=== PATIENT | male | born 2000 | race Hispanic/Latino ===

== ENCOUNTER → 2023-05-21 | Emergency (ER) | payer SELFPAY ==
[~2023-05-21] MED LIST: DIAZEPAM 5 MG TABLET ONE; LORazepam 2 MG/ML VIAL ONE; WATER FOR INJ,STERILE 10 ML ONE; ZIPRASIDONE MESYLA 20 MG/VIAL IM ONE
[2023-05-21 10:54] LABS: Absolute Lymphocytes (CBC) 1.6 K/uL (0.7-4.9); Hematocrit 49.2 % (39.6-49.0); Lymphocytes % 18.4 % (15.3-44.8); MCV 91.7 fL (80-100); Platelets 254 thou/uL (152-406); RBC Red Blood Cell Count 5.37 M/uL (4.33-5.43)
[2023-05-21 10:59] LABS: Protime INR 1.03
[2023-05-21 11:14] LABS: ALT/SGPT 21 U/L (16-61); AST/SGOT 15 U/L (15-37); Albumin 4.4 g/dL (3.4-5.0); Alkaline Phosphatase 75 U/L (45-117); BUN Blood Urea Nitrogen 7 mg/dL (7-18); Bicarbonate 25 mEq/L (21-32); Bilirubin Direct 0.2 mg/dL (0-0.2); Bilirubin Indirect, Calculated 0.3 mg/dL (0.2-0.8); Bilirubin Total 0.5 mg/dL (0.2-1.0); Glomerular Filtration Rate 126 ml/min (=/>90); Glucose Level 143 mg/dL (74-106); Potassium 3.6 mEq/L (3.5-5.1); Protein, Total 8.1 g/dL (6.4-8.2); Sodium Level 138 mEq/L (136-145)
--- NOTE | 2023-05-21 11:16 | ER ---
Nurse's Notes [facility] Name: Tim Escobar Age: 23 yrs Sex: Male : 2000 Arrival Date: 05/21/2023 Time: 10:15 Bed 16 Private MD: Diagnosis: Paranoid schizophrenia;Auditory hallucinations;Hallucinations, unspecified;Visual hallucinations;Abuse of other non-psychoactive substances Presentation: 05/21 10:30 Chief complaint: Patient states: pt reports auditory and visual hallucinations that kc6 began x1 week, worse yesterday. denies SI or HI or any prior mental health history. Coronavirus screen: At this time, the client does not indicate any symptoms associated with coronavirus-19. Ebola Screen: No symptoms or risks identified at this time. Initial Sepsis Screen: Does the patient meet any 2 criteria? No. Patient's initial sepsis screen is negative. Does the patient have a suspected source of infection? No. Patient's initial sepsis screen is negative. Risk Assessment: Do you want to hurt yourself or someone else? Patient reports no desire to harm self or others. Onset of symptoms was May 14, 2023. 10:30 Method Of Arrival: Ambulatory kc6 10:30 Acuity: CAN 2 kc6 Triage Assessment: 10:32 General: Appears in no apparent distress. comfortable, Behavior is cooperative, kc6 appropriate for age, anxious. Pain: Denies pain. EENT: No signs and/or symptoms were reported regarding the EENT system. Neuro: Baez Agitation-Sedation Scale (RASS): 0 - Alert and Calm Level of Consciousness is awake, alert, obeys commands, Oriented to person, place, time, situation, Appropriate for age. Cardiovascular: Capillary refill < 3 seconds. Respiratory: Airway is patent Trachea midline Respiratory effort is even, unlabored, Respiratory pattern is regular, symmetrical. GI: No signs and/or symptoms were reported involving the gastrointestinal system. : No signs and/or symptoms were reported regarding the genitourinary system. Derm: No signs and/or symptoms reported regarding the dermatologic system. Skin is intact, is healthy with good turgor, Skin is clammy, Skin is normal, Skin temperature is warm. Musculoskeletal: No signs and/or symptoms reported regarding the musculoskeletal system. Circulation, motion, and sensation intact. Capillary refill < 3 seconds, Range of motion: intact in all extremities. Historical: - Allergies: 10:32 No Known Allergies; kc6 - Home Meds: 10:32 None [Active]; kc6 - PMHx: 10:32 adhd; kc6 - PSHx: 10:32 None; kc6 - Immunization history:: Client reports having NOT received the Covid vaccine. Flu vaccine is not up to date. - Social history:: Smoking status: Reported history of juuling and/or vaping. Patient uses marijuana, Patient/guardian denies using alcohol, street drugs, IV drugs. Screenin:33 [facility] ED Fall Risk Assessment (Adult) History of falling in the last 3 months, kc6 including since admission No falls in past 3 months (0 pts) Confusion or Disorientation No (0 pts) Intoxicated or Sedated No (0 pts) Impaired Gait No (0 pts) Mobility Assist Device Used No (0 pt) Altered Elimination No (0 pt) Score/Fall Risk Level 0 - 2 = Low Risk. Abuse screen: Denies threats or abuse. Denies injuries from another. Nutritional screening: No deficits noted. Tuberculosis screening: No symptoms or risk factors identified. Assessment: 10:34 Reassessment: please see triage assessment. kc6 10:35 Reassessment: Dr. Dalton at bedside speaking with pt and mother. kc 11:34 Reassessment: Patient appears in no apparent distress at this time. No changes from [facility] previously documented assessment. Patient and/or family updated on plan of care and expected duration. Pain level reassessed. Patient is alert, oriented x 3, equal unlabored respirations, skin warm/dry/pink. 13:34 Reassessment: Patient appears in no apparent distress at this time. No changes from [facility] previously documented assessment. Patient and/or family updated on plan of care and expected duration. Pain level reassessed. Patient is alert, oriented x 3, equal unlabored respirations, skin warm/dry/pink. 14:10 Reassessment: at bedside reassessing pt. pt grabbed nurses left buttock while nurse chan attempts to reach call light for pt. pt states, "I'm sorry miss, I was trying to grab my phone. I'm sorry about that." pt informed that the behavior is inappropriate. charge nurse BLUE Ny notified. 14:34 Reassessment: Patient appears in no apparent distress at this time. No changes from kc6 previously documented assessment. Patient and/or family updated on plan of care and expected duration. Pain level reassessed. Patient is alert, oriented x 3, equal unlabored respirations, skin warm/dry/pink. 15:20 Reassessment: pt in front of nurses station stating he is no longer having auditory or kc6 visual hallucinations. stated he is "about to leave." pt encouraged to stay and educated on the plan for transfer. pt verbalized understanding. pt shown back to room. Dr. Dalton and BLUE Ny notified. 15:30 Reassessment: pt in front of nurses station asking permission to use the bathroom. kc6 15:39 Reassessment: pt in front of nurses station asking for water. pt instructed to use call kc6 light. pt states, "I'm about to go." pt informed to wait for mother, verbalized understanding. 16:01 Reassessment: mom and brother at bedside with pt. kc6 Vital Signs: 10:30 BP 146 / 98; Pulse 98; Resp 19 S; Temp 98.5(O); Pulse Ox 98% on R/A; Weight 54.43 kg kc6 (R); Height 5 ft. 6 in. (R); Pain 0/10; 12:16 BP 157 / 92; Pulse 83; Resp 19 S; Pulse Ox 97% on R/A; kc6 10:30 Body Mass Index 19.37 (54.43 kg, 167.64 cm) kc6 10:30 Pain Scale: Adult kc6 [place] Coma Score: 16:11 Eye Response: spontaneous(4). Motor Response: obeys commands(6). Verbal Response: stephanie oriented(5). Total: 15. ED Course: 10:18 Patient arrived in ED. mg5 10:20 Darion Dalton MD is Attending Physician. stephanie 10:24 Dilma Faulkner, BLUE is Primary Nurse. kc6 10:32 Triage completed. kc6 10:32 Arm band placed on. kc6 10:33 Patient has correct armband on for positive identification. Placed in gown. Bed in low kc6 position. Call light in reach. Side rails up X 1. Adult w/ patient. 10:45 Missed attempt(s): 22 gauge in left antecubital area. by Nella. kc6 11:44 CT Head Brain wo Cont In Process Unspecified. EDMS 11:45 faxed chart to [facility]. bd 11:45 contacted [facility] to have a screener evaluate pt. bd 11:45 Urinalysis w/ reflexes Sent. kc6 11:45 Urine Drug Screen Sent. kc6 13:22 faxed chart to [facility]. bd 16:09 Oli Peoples MD is Referral Physician. [facility] Administered Medications: No medications were administered Outcome: 11:15 ER care complete, transfer ordered by . stephanie 16:10 Discharge ordered by . stephanie 16:24 ER care complete, transfer ordered by . [facility] Signatures: Dispatcher [employer] EDMS Humera Ramos Corey, MD MD cha Campbell, Kaitlyn, RN RN kc6 Kira Lloyd mg5 Corrections: (The following items were deleted from the chart) 10:33 10:32 Allergies: No Known Allergies; kc6 kc6 10:33 10:32 Home Meds: None; kc6 kc6 10:33 10:32 PMHx: None; kc6 kc6 10:33 10:32 PSHx: None; kc6 kc6 14:56 11:40 Reassessment: Patient appears in no apparent distress at this time. No changes kc6 from previously documented assessment. Patient and/or family updated on plan of care and expected duration. Pain level reassessed. Patient is alert, oriented x 3, equal unlabored respirations, skin warm/dry/pink. kc6 14:56 13:04 Reassessment: Patient appears in no apparent distress at this time. No changes kc6 from previously documented assessment. Patient and/or family updated on plan of care and expected duration. Pain level reassessed. Patient is alert, oriented x 3, equal unlabored respirations, skin warm/dry/pink. kc6 16:05 16:01 Reassessment: mom at bedside with pt kc6 kc6
--- NOTE | 2023-05-21 11:16 | EDPHYS ---
Physician Documentation [facility] Name: Tim Escobar Age: 23 yrs Sex: Male : 2000 Arrival Date: 05/21/2023 Time: 10:15 Bed 16 Private MD: ED Physician Darion Dalton HPI: 05/21 11:11 This 23 yrs old Male presents to ER via Ambulatory with complaints of Hearing stephanie Voices. 11:11 The patient presents to the emergency department with anxiety, paranoia, psychosis. stephanie Onset: The symptoms/episode began/occurred 3 week(s) ago. Past psychiatric history: Prior diagnosis: no previous psychiatric diagnosis known. Associated signs and symptoms: Pertinent positives; hallucinations, paranoia. Severity of symptoms: At their worst the symptoms were mild moderate in the emergency department the symptoms are unchanged. The patient has experienced similar episodes in the past, a few times. Historical: - Allergies: 10:32 No Known Allergies; kc6 - Home Meds: 10:32 None [Active]; kc6 - PMHx: 10:32 adhd; kc6 - PSHx: 10:32 None; kc6 - Immunization history:: Client reports having NOT received the Covid vaccine. Flu vaccine is not up to date. - Social history:: Smoking status: Reported history of juuling and/or vaping. Patient uses marijuana, Patient/guardian denies using alcohol, street drugs, IV drugs. ROS: 11:11 Constitutional: Negative for fever, chills, and weight loss, Eyes: Negative for injury, stephanie pain, redness, and discharge, ENT: Negative for injury, pain, and discharge, Neck: Negative for injury, pain, and swelling, Cardiovascular: Negative for chest pain, palpitations, and edema, Respiratory: Negative for shortness of breath, cough, wheezing, and pleuritic chest pain, Abdomen/GI: Negative for abdominal pain, nausea, vomiting, diarrhea, and constipation, Back: Negative for injury and pain, : Negative for injury, bleeding, discharge, and swelling, MS/Extremity: Negative for injury and deformity, Skin: Negative for injury, rash, and discoloration, Neuro: Negative for headache, weakness, numbness, tingling, and seizure, Allergy/Immunology: Negative for hives, rash, and allergies, Endocrine: Negative for neck swelling, polydipsia, polyuria, polyphagia, and marked weight changes, Hematologic/Lymphatic: Negative for swollen nodes, abnormal bleeding, and unusual bruising. 11:11 Psych: Positive for anxiety, auditory hallucinations, visual hallucinations. Exam: 11:11 Constitutional: This is a well developed, well nourished patient who is awake, alert, stephanie and in no acute distress. Head/Face: Normocephalic, atraumatic. Eyes: Pupils equal round and reactive to light, extra-ocular motions intact. Lids and lashes normal. Conjunctiva and sclera are non-icteric and not injected. Cornea within normal limits. Periorbital areas with no swelling, redness, or edema. ENT: Nares patent. No nasal discharge, no septal abnormalities noted. Tympanic membranes are normal and external auditory canals are clear. Oropharynx with no redness, swelling, or masses, exudates, or evidence of obstruction, uvula midline. Mucous membranes moist. Neck: Trachea midline, no thyromegaly or masses palpated, and no cervical lymphadenopathy. Supple, full range of motion without nuchal rigidity, or vertebral point tenderness. No Meningismus. Chest/axilla: Normal chest wall appearance and motion. Nontender with no deformity. No lesions are appreciated. Cardiovascular: Regular rate and rhythm with a normal S1 and S2. No gallops, murmurs, or rubs. Normal PMI, no JVD. No pulse deficits. Respiratory: Lungs have equal breath sounds bilaterally, clear to auscultation and percussion. No rales, rhonchi or wheezes noted. No increased work of breathing, no retractions or nasal flaring. Abdomen/GI: Soft, non-tender, with normal bowel sounds. No distension or tympany. No guarding or rebound. No evidence of tenderness throughout. Back: No spinal tenderness. No costovertebral tenderness. Full range of motion. Male : Normal genitalia with no discharge or lesions. Skin: Warm, dry with normal turgor. Normal color with no rashes, no lesions, and no evidence of cellulitis. MS/ Extremity: Pulses equal, no cyanosis. Neurovascular intact. Full, normal range of motion. Neuro: Awake and alert, GCS 15, oriented to person, place, time, and situation. Cranial nerves II-XII grossly intact. Motor strength 5/5 in all extremities. Sensory grossly intact. Cerebellar exam normal. Normal gait. Psych: Awake, alert, with orientation to person, place and time. Behavior, mood, and affect are within normal limits. 11:15 ECG was reviewed by the Attending Physician. stephanie 16:11 Psych: Behavior/mood is pleasant, cooperative, Affect is calm, Oriented to person, stephanie place, time, Patient has no thoughts/intents to harm self or others. Judgement / Insight is normal. Memory is normal. Delusions/hallucinations are present and described as HEARS RANDOM VOICES, AND SEES THINGS THAT OTHERS DON'T SEE. Vital Signs: 10:30 BP 146 / 98; Pulse 98; Resp 19 S; Temp 98.5(O); Pulse Ox 98% on R/A; Weight 54.43 kg kc6 (R); Height 5 ft. 6 in. (R); Pain 0/10; 12:16 BP 157 / 92; Pulse 83; Resp 19 S; Pulse Ox 97% on R/A; kc6 10:30 Body Mass Index 19.37 (54.43 kg, 167.64 cm) kc6 10:30 Pain Scale: Adult kc6 [place] Coma Score: 16:11 Eye Response: spontaneous(4). Motor Response: obeys commands(6). Verbal Response: stephanie oriented(5). Total: 15. MDM: 10:20 Patient medically screened. stephanie 11:12 Differential diagnosis: drug withdrawal. acute psychotic break, depression, psychosis stephanie secondary to non-compliance. Data reviewed: vital signs, nurses notes, lab test result(s), EKG, radiologic studies. Consideration of Admission/Observation Escalation of care including admission/observation considered. Management of patient was discussed with the following: Colorectal Surgeon: psych. I considered the following discharge prescriptions or medication management in the emergency department Medications were administered in the Emergency Department. See MAR. Test considered but Not performed: MRI: no brain mri. Historians other than the Patient: Parent: mom, well informed. Care significantly affected by the following chronic conditions: adhd. Counseling: I had a detailed discussion with the patient and/or guardian regarding the historical points, exam findings, and any diagnostic results supporting the discharge/admit diagnosis, the presence of at least one elevated blood pressure reading (>120/80) during this emergency department visit, lab results, radiology results, the need to transfer to another facility, for higher level of care, [facility] required specialist. 05/21 10:20 Order name: Acetaminophen; Complete Time: 11:25 [facility] 05/21 10:20 Order name: Basic Metabolic Panel; Complete Time: 11:25 [facility] 05/21 10:20 Order name: CBC with Diff; Complete Time: 11:03 [facility] 05/21 10:20 Order name: ETOH Level; Complete Time: 11: [facility] 05/21 10:20 Order name: Hepatic Function; Complete Time: : [facility] 05/21 10:20 Order name: PT-INR; Complete Time: 11: [facility] 05/21 10:20 Order name: Ptt, Activated; Complete Time: 11: [facility] 05/21 10:20 Order name: Salicylate; Complete Time: 12:20 [facility] 05/21 10:20 Order name: Urinalysis w/ reflexes; Complete Time: 12:20 [facility] 05/21 10:20 Order name: Urine Drug Screen; Complete Time: 12:20 [facility] 05/21 10:20 Order name: EKG; Complete Time: 10:30 [facility] 05/21 10:20 Order name: EKG - Nurse/Tech; Complete Time: 10:40 [facility] 05/21 10:20 Order name: IV Saline Lock; Complete Time: 10:40 [facility] 05/21 10:20 Order name: Labs collected and sent; Complete Time: 10:40 [facility] 05/21 10:20 Order name: Suicide Screening ([place]); Complete Time: 10:40 [facility] 05/21 11:03 Order name: CT Head Brain wo Cont; Complete Time: 12:20 [facility] 05/21 15:20 Order name: Diet Finger Food; Complete Time: 15:20 bd EC:15 Rate is 97 beats/min. Rhythm is regular. QRS [place] is Normal. OR interval is normal. QRS stephanie interval is normal. QT interval is normal. No Q waves. T waves are Normal. No ST changes noted. Clinical impression: NSR w/ Non-specific ST/T Changes and No evidence of ischemia. Interpreted by me. Reviewed by me. Administered Medications: No medications were administered Disposition Summary: 05/21/23 16:24 Transfer Ordered Accepting Physician: TO PSYCH(05/21/23 16:24) stephanie Transfer Location: Psych Facility(05/21/23 16:24) stephanie Reason: Higher level of care(05/21/23 16:24) stephanie Condition: Fair(05/21/23 16:24) stephanie Problem: new(05/21/23 16:24) stephanie Symptoms: have improved(05/21/23 16:24) stephanie Diagnosis - Paranoid schizophrenia(05/21/23 16:24) stephanie - Auditory hallucinations(05/21/23 16:24) stephanie - Hallucinations, unspecified(05/21/23 16:24) stephanie - Visual hallucinations(05/21/23 16:24) stephanie - Abuse of other non-psychoactive substances stephanie Forms: - Medication Reconciliation Form stephanie - SBAR form stephanie Signatures: Dispatcher [employer] EDMS Darion Dalton MD MD cha Campbell, Kaitlyn, RN RN kc6 Corrections: (The following items were deleted from the chart) 10:33 10:32 Allergies: No Known Allergies; kc6 kc6 10:33 10:32 Home Meds: None; kc6 kc6 10:33 10:32 PMHx: None; kc6 kc6 10:33 10:32 PSHx: None; kc6 kc6 16:09 11:15 to psych stephanie stephanie 16:09 11:15 Psych Facility stephanie stephanie 16:09 11:15 Higher level of care stephanie stephanie 16:09 11:15 Stable stephanie stephanie 16:09 11:15 new stephanie stephanie 16:09 11:15 have improved stephanie stephanie 16:09 11:15 Paranoid schizophrenia stephanie stephanie 16:09 11:15 Hallucinations, unspecified stephanie stephanie 16:09 11:15 Auditory hallucinations stephanie stephanie 16:09 11:15 Visual hallucinations stephanie stephanie 16:22 16:10 Home stephanie stephanie 16:22 16:10 new stephanie stephanie 16:22 16:10 are unchanged stephanie stephanie 16:22 16:10 Stable stephanie stephanie 16:22 16:10 Paranoid schizophrenia stephanie stephanie 16:22 16:10 Auditory hallucinations stephanie stephanie 16:22 16:10 Visual hallucinations stephanie stephanie
[2023-05-21 11:50] LABS: Specific Gravity < 1.005 (1.005-1.030); Urine Bacteria None Seen /HPF (<20); Urine Bilirubin NEGATIVE (Negative); Urine Blood Negative (Negative); Urine Clarity Turbid (Clear); Urine Color Colorless (Yellow); Urine Glucose NEGATIVE (Negative); Urine Protein NEGATIVE (Negative); Urine RBC <5 /HPF (None Seen); Urine Urobilinogen Normal (Normal)
--- NOTE | 2023-05-21 11:53 | RAD REPORT ---
EXAM DESCRIPTION: CT - Head Brain Wo Cont - 05/21/2023 11:42 am CLINICAL HISTORY: Alteration of awareness/confusion COMPARISON: None TECHNIQUE: Computed axial tomography of the head was obtained. IV contrast was not requested. All CT scans are performed using dose optimization technique as appropriate and may include automated exposure control or mA/KV adjustment according to patient size. FINDINGS: An intracranial bleed is not seen The ventricles are normal in caliber No extra-axial fluid collection is noted. No significant hypodensity within the brain is seen. Fluid within the sinuses/ mastoids is not seen. IMPRESSION: No acute intracranial abnormality is seen If patient's symptoms persist MRI of the brain would be recommended
[2023-05-21 12:02] LABS: Barbiturates NEGATIVE (NEGATIVE); Benzodiazepines NEGATIVE (NEGATIVE); Cocaine NEGATIVE (NEGATIVE); METHAMPHETAM NEGATIVE (NEGATIVE); Methadone NEGATIVE (NEGATIVE); Opiates NEGATIVE (NEGATIVE); Phencyclidine NEGATIVE (NEGATIVE); THC Cannibis POSITIVE (NEGATIVE)
--- NOTE | 2023-05-22 12:40 | EKG ---
Test Date: 2023-05-21 Test Time: 10:44:18 Boat Loader: CHRISTIANO MEASUREMENT RESULTS: Intervals: Rate: 97 GA: 140 QRSD: 92 QT: 348 QTc: 441 [place]: P: 85 GA: 140 QRS: 102 T: 60 INTERPRETIVE STATEMENTS: Normal sinus rhythm Rightward axis Pulmonary disease pattern Abnormal ECG No previous ECG available for comparison Electronically Signed On 05-22-23 12:37:26 CDT by Latrell Mares
== END ==
LOC: ER 10:15
DX: F20.0 Paranoid schizophrenia (principal); F55.8 Abuse of other non-psychoactive substances
CPT/HCPCS: 36415; 70450; 80048; 80076; 80143; 80179; 80307; 81001; 82077; 85025; 85610; 85730; 93005; J3486